=== PATIENT | female | born 1965 | race Caucasian/White ===

== ENCOUNTER → 2021-10-05 00:31 | Outpatient (CLI) | payer MEDICARE, SELFPAY ==
[2021-10-08 10:57] LABS: SARS-CoV-2 RNA PCR Positive
== END ==
PROVIDERS: PCP Internal Medicine
DX: U07.1 COVID-19 (principal); R05.9 Cough, unspecified; R50.9 Fever, unspecified
CPT/HCPCS: C9803; U0003; U0005